=== PATIENT | female | born 2000 | race African-American/Black ===

== ENCOUNTER 2022-06-22 12:15 | Emergency (ER) | payer MEDICAID ==
[~2022-06-22] VITALS: Ht 167.6 cm; Wt 91.0 kg
[2022-06-22 12:38] VITALS: BP 132/80
== END 2022-06-22 18:58 | disposition left against medical advice (07) ==
LOC: ER 12:15
DX: Z53.21 Procedure and treatment not carried out due to patient leaving prior to being seen by health care provider (principal)